=== PATIENT | male | born 1960 | race Caucasian/White ===

== ENCOUNTER 2025-11-07 06:13 | Day surgery (SDC) | payer OTHER, SELFPAY ==
--- NOTE | 2025-10-19 14:33 | CM ---
Orthopedic Case Management Assessment
Demographics: confirmed
Living situation: Lives with spouse in a 2 story home, has 1st floor set up 8 steps from driveway.
Support Person Post Operatively: spouse
History of
VN: No
SNF: No
Outpatient: [facility] appointment set up for 11/10
Has patient purchased required equipment: Yes, patient is bringing in his own walker, for day of discharge.
PCP: Dr Mena Sainz
Pharmacy: [facility] in [place]
Post Operative Discharge Plan: Patient will be SDS for Left Total Knee Arthroplasty and plan is to home with [facility] care visiting nurses till 11/09, patient has been made aware that he needs to make an appointment at [facility] on 11/10.
[2025-10-21 11:18] LABS: Hematocrit 36.1 % (39.0-52.0); Hemoglobin 12.3 g/dL (13.0-18.0); Mean Corp Hgb Conc. 34.1 g/dL (33.0-37.0); Mean Corpuscular Volume 86.8 fL (80.0-94.0); Platelet Count 201 10^3/uL (130-400); Red Cell Dist. Width 13.0 % (11.5-14.5)
[2025-10-21 11:38] LABS: Glycohemoglobin (HgbA1c) 7.3 % (4.0-5.9)
[2025-10-21 11:45] LABS: ALT (SGPT) 33 U/L (0-50); AST (SGOT) 30 U/L (17-59); Albumin 3.9 g/dl (3.5-5.0); Alkaline Phosphatase 108 U/L (38-126); Blood Urea Nitrogen 23 mg/dl (9-20); Calcium 8.9 mg/dl (8.4-10.2); Carbon Dioxide 31 mmol/L (22-30); Chloride 101 mmol/L (98-107); Glucose 207 mg/dl (70-99); Potassium 4.9 mmol/L (3.5-5.1); Sodium 137 mmol/L (135-145); Total Protein 6.5 g/dl (6.3-8.2); eGFR > 60.00
[2025-10-21 13:24] LABS: Iron 50 ug/dl (49-181)
[2025-10-21 13:33] LABS: Total Iron Binding Capacity 299 ug/dl (261-462)
[2025-10-21 14:11] VITALS: BMI 29.8
[2025-10-21 14:24] VITALS: BMI 29.8
[2025-10-21 15:34] LABS: Ferritin 39.7 ng/ml (17.9-464.0)
[2025-10-21 16:29] LABS: Folate 14.2 ng/ml (2.76-20)
[2025-10-21 21:52] LABS: Vitamin B12 175 pg/ml (239-931)
[2025-11-07] VITALS (11 sets, daily range): BP systolic 109–163; BP diastolic 52–72; PULSE 61; O2SAT 100; BMI 29.8
[2025-11-07] MEDS: CELEBREX 200 MG PO (07:28)
[2025-11-07] MEDS: NORMOSOL-R/PLASMALYTE-A 1000 IV (07:28)
[2025-11-07 07:31] LABS: Glucose - Point of Care 304 mg/dl (70-99)
[2025-11-07] MEDS: TYLENOL 650 MG PO (07:37)
--- NOTE | 2025-11-07 08:15 | CM ---
Patient has been set up with [facility]. Call placed to [facility] this morning.
[facility]
[phone]
--- NOTE | 2025-11-07 08:20 | W.DS.TRANS ---
DC Summary - [employer]
-
Discharge Instructions:
Sleep Apnea Risk Intermediate
Discharge Diagnosis/Procedures L knee OA s/p L TKA w/ Dr Powell 11/07/25
Diet Diabetic, Carb Controlled
Additional Diets Adequate hydration, minimize opioids, and wear
TEDs stockings to prevent low blood pressure/
dizziness.
Activity As tolerated,With Walker
Driving Restrictions Not until seen by your Dr
Bathing Restrictions OK to Shower
Other Services PT,VN
Wound Care Dressing to be removed 1 week post-surgery.
Howells to be removed at 2 week follow-up with
surgeon's office.
Instructions:
Stand-Alone Forms: SDS Total Hip and Knee D/C
Changes to Home Medications: Yes
Discharge Medications:
DC Medications w/original date entered in [facility]
cholecalciferol (vitamin D3) 50 mcg (2,000 unit) capsule (Vitamin D3) 50 mcg PO DAILY 10/19/25
insulin lispro 100 unit/mL subcutaneous cartridge (Humalog U-100 Insulin) 1 unit SC DIRECTED 10/19/25
rosuvastatin 40 mg tablet (Crestor) 40 mg PO DAILY 10/19/25
vit C 250 mg-vit E 90 mg-zinc 40 mg-copper 1 [id number] capsule (PreserVision AREDS-2) 1 tab PO BID 10/19/25
Held on 11/07/25. Instructions: Resume on 11/15/25.
cefadroxil 500 mg capsule 500 mg PO BID #14 caps 10/21/25
celecoxib 200 mg capsule (Celebrex) 200 mg PO DAILY #14 caps 10/21/25
famotidine 20 mg tablet (Pepcid) 20 mg PO HS #30 tabs 10/21/25
gabapentin 300 mg capsule 300 mg PO HS neuropathic pain/sleep #10 caps 10/21/25
mupirocin 2 % topical ointment 1 applic intranasal BID #1 tube 10/21/25
ondansetron HCl 4 mg tablet 4 mg PO Q6H PRN nausea and vomiting #30 tabs 10/21/25
oxycodone 5 mg tablet 5 - 10 mg (1 - 2 x 5 mg) PO Q6H PRN moderate-severe pain #30 tabs 10/21/25
acetaminophen 650 mg tablet,extended release 650 - 1,300 mg (1 - 2 x 650 mg) PO QID #0 tabs 11/07/25
aspirin 325 mg tablet 325 mg PO DAILY blood clot prevention #1 tab 11/07/25
docusate sodium 100 mg capsule (Colace) 100 mg PO BID stool softner #1 cap 11/07/25
lactobacillus combination no.4 3 billion cell capsule (Probiotic) 3,000 mmu cells PO DAILY 11/07/25
lisinopril 10 mg tablet 10 mg PO DAILY #0 tabs 11/07/25
magnesium hydroxide 400 mg/5 mL oral suspension (Milk of Magnesia) 30 ml PO HS PRN constipation #1 mL 11/07/25
sennosides 8.6 mg tablet (Senokot) 17.2 mg (2 x 8.6 mg) PO BID laxative #2 tabs 11/07/25
vitamin B12 0.5 mg-folic acid 1 mg tablet 1 tab PO DAILY 11/07/25
Home Medication Changes
cefadroxil 500 mg capsule 500 mg PO BID #14 caps 10/21/25
celecoxib 200 mg capsule (Celebrex) 200 mg PO DAILY #14 caps 10/21/25
famotidine 20 mg tablet (Pepcid) 20 mg PO HS #30 tabs 10/21/25
gabapentin 300 mg capsule 300 mg PO HS neuropathic pain/sleep #10 caps 10/21/25
mupirocin 2 % topical ointment 1 applic intranasal BID #1 tube 10/21/25
ondansetron HCl 4 mg tablet 4 mg PO Q6H PRN nausea and vomiting #30 tabs 10/21/25
oxycodone 5 mg tablet 5 - 10 mg (1 - 2 x 5 mg) PO Q6H PRN moderate-severe pain #30 tabs 10/21/25
acetaminophen 650 mg tablet,extended release 650 - 1,300 mg (1 - 2 x 650 mg) PO QID #0 tabs 11/07/25
aspirin 325 mg tablet 325 mg PO DAILY blood clot prevention #1 tab 11/07/25
docusate sodium 100 mg capsule (Colace) 100 mg PO BID stool softner #1 cap 11/07/25
lactobacillus combination no.4 3 billion cell capsule (Probiotic) 3,000 mmu cells PO DAILY 11/07/25
lisinopril 10 mg tablet 10 mg PO DAILY #0 tabs 11/07/25
magnesium hydroxide 400 mg/5 mL oral suspension (Milk of Magnesia) 30 ml PO HS PRN constipation #1 mL 11/07/25
sennosides 8.6 mg tablet (Senokot) 17.2 mg (2 x 8.6 mg) PO BID laxative #2 tabs 11/07/25
Pending Results: No
[2025-11-07 10:15] LABS: Glucose - Point of Care 310 mg/dl (70-99)
[2025-11-07] MEDS: CYKLOKAPRON 650 MG PO (12:52)
[2025-11-07] MEDS: ANCEF 5 IV (12:52)
== END 2025-11-07 13:42 | disposition home health service (06) ==
LOC: SDS 06:13
PROVIDERS: ATTENDING PHYSICIAN Specialist; FAMILY PHYSICIAN Family Medicine; OTHER PHYSICIAN Internal Medicine Cardiovascular Disease; OTHER PHYSICIAN Physician Assistant; REFERRING PHYSICIAN Internal Medicine Endocrinology, Diabetes & Metabolism
DX: M17.12 Unilateral primary osteoarthritis, left knee (principal); I25.10 Atherosclerotic heart disease of native coronary artery without angina pectoris; Z87.891 Personal history of nicotine dependence
CPT/HCPCS: 27447; C1776; C1713; 36415; 73560; 80053; 82607; 82728; 82746; 82962; 83036; 83540; 83550; 85027; 87070; 97116; 97162